=== PATIENT | male | born 1950 | race Caucasian/White ===

== ENCOUNTER 2017-10-09 10:42 | Emergency (ER) | payer SELFPAY ==
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
[2017-10-09 11:12] LABS: ABS Basophils 0.1 10^3/ul (0-0.2); ABS Eosinophils 0.4 10^3/ul (0-0.6); ABS Lymphocytes 1.7 10^3/ul (1.0-4.8); ABS Monocytes 0.8 10^3/ul (0-0.8); ABS Neutrophils 5.8 10^3/ul (1.5-7.7); ABS Nucleated RBC 0 10^3/ul; Eosinophil % 4.1 % (0-6); Hematocrit 42 % (42-52); Lymphocyte % 19.4 % (25-47); Mean Corpuscular HGB Conc 33 g/dl (31-36); Mean Corpuscular Hemoglobin 31 pg (27-31); Mean Corpuscular Volume 93 fL (80-94); Mean Platelet Volume 7.3 um3 (7.4-10.4); Nucleated Red Blood Cells % 0.1; Platelet Count 217 10^3/ul (150-450); Red Blood Count 4.55 10^6/ul (4.00-5.40); Red Cell Distribution Width 16 % (10.5-15); White Blood Count 8.8 10^3/ul (3.5-10.8)
[2017-10-09 11:22] LABS: INR 0.93 (0.77-1.02)
[2017-10-09 11:32] LABS: EGFR Non-African American 71.8 (>60)
--- NOTE | 2017-10-09 11:39 | RAD ---
INDICATION: Chest pain. COMPARISON: Comparison is made with a prior study from July 19, 2015. TECHNIQUE: An AP portable film of the chest was obtained upright. FINDINGS: The heart appears mildly prominent. The lungs are hyperinflated. There is diffuse prominence of the interstitial markings with more focal infiltrates at both lung bases. There may be a trace left pleural effusion. IMPRESSION: FINDINGS SUGGESTIVE OF CONGESTIVE HEART FAILURE, LESS LIKELY PNEUMONIA.
[2017-10-09] MEDS ORDERED: Metoprolol Succinate XL TAB* 50 MG PO ONE (12:38)
[2017-10-09] MEDS ORDERED: Furosemide IV* 10 MG/ML VIAL (40 MG) IV ONE (12:39)
[2017-10-09] MEDS ORDERED: Albuterol/Ipratropium NEB.SOL* Albuterol 2.5 MG/Ipratropium 0.5 MG 3 ML INH ONE (12:39)
[2017-10-09] MEDS ORDERED: predniSONE TAB* 20 MG PO ONE (12:39)
[2017-10-09 13:34] VITALS: BP 0/0
== END 2017-10-09 13:35 | disposition home or self-care (01) ==
LOC: ED 10:42
DX: I48.92 Unspecified atrial flutter (principal); R60.9 Edema, unspecified; J44.1 Chronic obstructive pulmonary disease with (acute) exacerbation; F17.210 Nicotine dependence, cigarettes, uncomplicated
CPT/HCPCS: 36415; 71045; 80053; 83880; 84443; 84484; 85025; 85610; 85730; 93005; 96374; 99282; A9270-GY; J1940; J7512

== ENCOUNTER 2017-12-13 15:06 | Observation (INO) | payer MEDICARE ==
[2017-12-13] MEDS ORDERED: Dexamethasone IV* 4 MG/ML 5 ML VIAL (20 MG) IVPB ONE (15:40)
[2017-12-13] MEDS ORDERED: Albuterol/Ipratropium NEB.SOL* Albuterol 2.5 MG/Ipratropium 0.5 MG 3 ML INH ONE (15:40)
[2017-12-13 16:17] LABS: ABS Basophils 0 10^3/ul (0-0.2); ABS Eosinophils 0.3 10^3/ul (0-0.6); ABS Lymphocytes 1.9 10^3/ul (1.0-4.8); ABS Monocytes 0.7 10^3/ul (0-0.8); ABS Neutrophils 3.3 10^3/ul (1.5-7.7); ABS Nucleated RBC 0 10^3/ul; Eosinophil % 4.1 % (0-6); Hematocrit 46 % (42-52); Hemoglobin 15.4 g/dl (14.0-18.0); Lymphocyte % 30.8 % (25-47); Mean Corpuscular HGB Conc 34 g/dl (31-36); Mean Corpuscular Hemoglobin 32 pg (27-31); Mean Corpuscular Volume 95 fL (80-94); Mean Platelet Volume 8.4 um3 (7.4-10.4); Nucleated Red Blood Cells % 0.1; Platelet Count 212 10^3/ul (150-450); Red Blood Count 4.81 10^6/ul (4.00-5.40); Red Cell Distribution Width 16 % (10.5-15); White Blood Count 6.2 10^3/ul (3.5-10.8)
--- NOTE | 2017-12-13 16:22 | RAD ---
Indication: Bilateral lower extremity edema. Appears chronic. Comparison: October 09, 2017 Technique: Upright AP 1550 hours Report: Elevated lung volumes and mild prominence of the interstitial markings. Grossly clear pleural spaces. Mild cardiomegaly. Mild prominence of the central pulmonary vasculature without gross change. Mildly tortuous descending thoracic aorta. IMPRESSION: #. Pulmonary vascular congestion and interstitial edema similar to the prior exam.
[2017-12-13 16:31] LABS: EGFR Non-African American 79.8 (>60)
[2017-12-13 16:34] LABS: INR 0.87 (0.77-1.02)
[2017-12-13] MEDS ORDERED: Iohexol 350* (CONTRAST) 500 ML MDV IV ONE (17:30)
--- NOTE | 2017-12-13 18:50 | RAD ---
EXAM: CT Angiography Chest With Intravenous Contrast EXAM DATE/TIME: 12/13/2017 5:43 PM CLINICAL HISTORY: 67 years old, male; Pain; Chest pain; Type not specified; Additional info: SOB, palpitation eval for dvt TECHNIQUE: Axial computed tomographic angiography images of the chest with intravenous contrast using CT angiography protocol. All CT scans at this facility use at least one of these dose optimization techniques: automated exposure control; mA and/or kV adjustment per patient size (includes targeted exams where dose is matched to clinical indication); or iterative reconstruction. Coronal and sagittal reformatted images were created and reviewed. MIP reconstructed images were created and reviewed. CONTRAST: 88 ml of OMNIPAQUE 350 administered intravenously. COMPARISON: OT CXR PA CHEST 1 VW 10/09/2017 11:11 AM FINDINGS: Pulmonary arteries: No visible acute pulmonary embolism but limited evaluation of segmental and subsegmental branches of the pulmonary arteries because of respiratory motion artifact. Aorta: Normal. No aortic aneurysm. No aortic dissection. Lungs: There is mild centrilobular emphysema. There is additional bibasilar and bilateral dependent atelectatic change or scarring. Pleural space: There is a small left pleural effusion and associated dependent atelectasis and/or patchy pneumonitis. Heart: Normal. No cardiomegaly. No pericardial effusion. Bones/joints: There is diffuse osteopenia and there are degenerative changes of the spine. There are chronic left-sided rib fractures. Soft tissues: Unremarkable. Lymph nodes: Unremarkable. No enlarged lymph nodes. Liver: There is heterogeneous low attenuation in the liver which could be related to heterogeneous fatty change, but cannot exclude underlying mass lesions. May be more accurately assessed with dedicated CT or MRI hepatic mass protocol on a non-emergent basis. IMPRESSION: 1. There is mild centrilobular emphysema. 2. There is a small left pleural effusion and associated dependent atelectasis and/or patchy pneumonitis. 3. No visible acute pulmonary embolism but limited evaluation of segmental and subsegmental branches of the pulmonary arteries because of respiratory motion artifact. 4. There is heterogeneous low attenuation in the liver which could be related to heterogeneous fatty change, but cannot exclude underlying mass lesions. May be more accurately assessed with dedicated CT or MRI hepatic mass protocol on a non-emergent basis. To contact [facility] with a general question: [facility] - [phone] For direct physician to physician contact: Physician Hotline - [phone] [facility] (ad Facility ID #[id number])
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
--- NOTE | 2017-12-13 19:41 | RAD ---
EXAM: US Bilateral Duplex Lower Extremity Veins EXAM DATE/TIME: 12/13/2017 7:04 PM CLINICAL HISTORY: 67 years old, male; Signs and symptoms; Swelling (edema) of limb; Lower extremity, bilateral; Additional info: Swelling chronic for several months TECHNIQUE: Real-time duplex ultrasound of the Bilateral Lower Extremities with 2-D curiel scale, color Doppler flow and spectral waveform analysis. Complete exam focused on the bilateral lower extremity veins. COMPARISON: No relevant prior studies available. FINDINGS: Right deep veins: Unremarkable. The common femoral, femoral and popliteal veins are patent without thrombus. Normal compressibility, augmentation response and Doppler waveforms. The peroneal veins were not visualized, likely due to lower extremity edema. Remainder of calf veins were patent. Right superficial veins: Saphenofemoral junction is patent without thrombus. Left deep veins: Unremarkable. The common femoral, femoral and popliteal veins are patent without thrombus. Normal compressibility, augmentation response and Doppler waveforms. The peroneal veins were not visualized, likely due to lower extremity edema. Remainder of calf veins were patent. Left superficial veins: Saphenofemoral junction is patent without thrombus. Soft tissues: Subcutaneous edema was noted in the calves bilaterally. IMPRESSION: 1. No evidence of right or left lower extremity DVT. 2. Subcutaneous edema and bilateral calves. To contact [facility] with a general question: [facility] - [phone] For direct physician to physician contact: Physician Hotline - [phone] [facility] ([facility] Facility ID #[id number])
[2017-12-13] MEDS ORDERED: Metoprolol Tartrate IV* 1 MG/ML 5 ML VIAL IV ONE (20:26)
[2017-12-13] MEDS ORDERED: Acetaminophen TAB* 325 MG PO PRN (20:26)
[2017-12-13] MEDS ORDERED: Magnesium Sulfate 1 GM IV* 1 GM/100 ML BAG IV ONE (20:29)
[2017-12-13] MEDS ORDERED: Furosemide IV* 10 MG/ML 2 ML VIAL (20 MG) IV SLOW PU ONE (20:43)
[2017-12-13] MEDS ORDERED: predniSONE TAB* 20 MG PO SCH (21:00)
[2017-12-13] MEDS ORDERED: LORazepam TAB(*) 1 MG PO SCH (21:00)
[2017-12-13] MEDS ORDERED: Rivaroxaban TAB(*) 20 MG TAB PO SCH (21:00)
[2017-12-13] MEDS ORDERED: Metoprolol Tartrate TAB* 25 MG PO SCH (21:00)
[2017-12-13] MEDS ORDERED: NS 0.9% 500 ML* 500 ML IV ONE (22:20)
--- NOTE | 2017-12-13 22:31 | PN ---
Hospitalist Progress Note Date of Service: 12/13/17 Called for latic of 3.8 note previous lactic 2.5. Patient marie cultured. No other signs of sepsis. Cxr clear infact showing pum edema, and patient wheezing , no fever, is tachy however r/t aflutter with rvr, will trend lactics, no abd pain, no chest pain, and sob improved after lasix, no abx at this point elevated lactic unclear but will follow
[2017-12-13] MEDS ORDERED: Albuterol/Ipratropium NEB.SOL* Albuterol 2.5 MG/Ipratropium 0.5 MG 3 ML INH SCH (23:00)
[2017-12-13] MEDS: KCL 10 MEQ/50 ML IVPREMIX* 10 MEQ/50 ML BAG IV SCH (23:10)
[2017-12-13] MEDS: Mometasone/Formoter 200/5 MDI INH SCH (23:59)
[2017-12-14] MEDS ORDERED: Albuterol/Ipratropium NEB.SOL* Albuterol 2.5 MG/Ipratropium 0.5 MG 3 ML INH PRN (00:01)
--- NOTE | 2017-12-14 00:07 | HP ---
CC: Dr. Kennedy; Dr. Dodson; Dr. Andres * HISTORY AND PHYSICAL: DATE OF ADMISSION: 12/13/17 PRIMARY CARE PROVIDER: Dr. Kennedy. CONSULTING CARDIOLOGISTS: Dr. Dodson and Dr. Andres. MY ATTENDING PHYSICIAN WHILE IN THE HOSPITAL: Dr. Brenda Portillo * (report dictated by Jelena Nova NP). CHIEF COMPLAINT: 1. Elevated heart rate. 2. Shortness of breath. HISTORY OF PRESENTING ILLNESS: Mr. Fernandez is a 67-year-old male patient who has a known history of AFib, Aflutter, bipolar disorder, and also is a chronic tobacco abuser, who has really been lost to followup. Two years ago, he was here and admitted, was found to be in Aflutter with a rapid ventricular response , he underwent workup. He was discharged, but unfortunately was lost to followup. He says that he was able to obtain insurance, was following with primary today, getting a routine physical. On evaluation, it was noted that he was tachycardic and he was complaining of shortness of breath, so he was sent to the hospital. The patient says that he has been having rapid heart rates for at least the last 6 months, he has not been taking any medication for this. He says that he knows about the irregular heartbeat. He does state that he does drink alcohol, 1 to 2 cans of 24-ounce cans of beer, almost on a daily basis. He does smoke daily as well, about a pack a day. He says that in the last several days he has been having a cough that has been nonproductive. He said that he was coughing pretty heavily about 4 or 5 days ago and had an episode where he had fainted. He denied having any chest pain, but he does admit to having palpitations. He can feel his heart rate racing. He came into his primary service today and there was concern because of this and he was sent to the hospital. Denied any chest pain. Denied having any fevers or chills. Denied any nausea, vomiting, or diarrhea. PAST MEDICAL HISTORY: Significant for: 1. Aflutter. 2. Bipolar. 3. He is legally blind in his right eye. PAST SURGICAL HISTORY: Denied. MEDICATIONS: Home meds, he says, which were just prescribed recently and he has not yet started taking according to him, include: 1. Lasix 20 mg daily. 2. Ventolin 2 puffs inhaled every 6 hours as needed. 3. Potassium chloride 10 mEq p.o. daily. 4. Lopressor 25 mg p.o. b.i.d. ALLERGIES TO MEDICATION: Include no known drug allergies. FAMILY HISTORY: Mother had a history of cancer. Father's history is unknown. SOCIAL HISTORY: He does drink, again, about 1 to 2 cans of 24-ounce beers, almost daily. He has a history of smoking as well. He denied recreational drug abuse. He does not have a surrogate decision maker at this point. REVIEW OF SYSTEMS: There is no documented fever. He denies having any significant weight change. There is no double vision. He denies having any ear discharge. There is no rhinorrhea. He denies having a sore throat. There was a cough. He denies having any orthopnea. There is no nocturnal dyspnea. He denies having any abdominal pain. There is no nausea, no vomiting. There is no dysuria. There is no frequency. There is no seizure, no loss of consciousness. No pruritus and no skin ulcerations. Review of 14 systems completed, all others negative. PHYSICAL EXAMINATION GENERAL: At this time, Ms. Fernandez is a 67-year-old male patient who appears to be older than stated age. He appears to be well nourished, well developed. He does not appear to be in any acute distress. VITAL SIGNS: Blood pressure of 150/106, pulse 126, respirations were 20, O2 sat 93%, temperature 98.5. There is a recorded respiratory rate of 40, but when I encountered his breathing rate around 20. HEENT: Head: Atraumatic, normocephalic. Eyes: EOMs are intact. Sclerae anicteric, not pale. NECK: Supple. His throat, oral mucosa appears to be moist. No oropharyngeal erythema. LUNGS: He had wheezing noted throughout. He had equal diaphragmatic expansion. HEART: Sounds S1, S2. Irregularly irregular rate. No murmurs, rubs, or gallops. ABDOMEN: Soft, flat, nontender. Bowel sounds are present. EXTREMITIES: He did have 2+ pitting edema bilaterally. He had 5/5 strength. NEUROLOGICAL: He is awake, alert, and oriented x3. He had no gross focal deficits. SKIN: Intact. DIAGNOSTIC STUDIES/LAB DATA: WBC of 6.2, RBC of 4.81, hemoglobin of 15.4, hematocrit of 46, platelet count of 212. INR 0.87, PTT of 29.5. D-dimer of 518. Sodium 142, potassium 3.6, chloride 106, bicarb 27, BUN 5, creatinine 0.94 , glucose 96, lactic 2.5, calcium 9.2. Mag 1.9. Total bili 0.3, AST 46, ALT 59 , alk phos 91. His troponin was 0.01, repeat was 0.01. Albumin of 3.8. He did have a venous Doppler ultrasound obtained today, which revealed no evidence of right or left lower DVT, subcutaneous edema in bilateral calves. He had a chest/thorax CTA. There is mild centrilobular emphysema. There is a small left pleural effusion, associated dependent atelectasis and/or patchy pneumonitis. No visible acute PE, limited evaluation of segmental and subsegmental branches of the pulmonary arteries because of respiratory motion. Chest x-ray shows pulmonary vascular congestion and interstitial edema, similar to prior exam. He did have an EKG obtained today as well, which shows atrial flutter with a rate of 111, no ST elevation was noted. It was reviewed with the previous EKG, it appears to be similar. Old medical records were reviewed. ASSESSMENT AND PLAN: Mr. Fernandez is a 67-year-old male patient coming into the emergency department today with complaints of irregular heartbeat and shortness of breath. We were asked to evaluate for admission. He will be admitted under observation status for: 1. Atrial fibrillation/atrial flutter. Again, this is a chronic problem for this patient. He has had this for several years. He has been lost to followup. I did touch base with Cardiology who will have the rounding train operations manager see the patient tomorrow. The plan, according to Cardiology, would be to go ahead and give him metoprolol 5 mg IV now and then start him on 25 mg p.o. b.i.d. I will also give him a dose of Lasix given the interstitial edema. I will also check an echo, cycle his troponin one more time, place him on telemetry and try for rate control and start Xarelto. I will try to get his potassium around 4 and his mag around 2. 2. Bipolar. Continue with supportive care. 3. Shortness of breath. I feel the patient presumably could have chronic obstructive pulmonary disease given his history of smoking, he is wheezing on exam. He will be given DuoNeb steroids and inhaled steroids as well, and we will continue to follow. 4. DVT prophylaxis: He will be on Xarelto. 5. Code status: Full code. 6. Fluids, electrolytes, and nutrition: He can have a heart-healthy diet. 7. Ethyl alcohol abuse. I will place him on [facility] protocol. TIME SPENT: Time spent on this admission was 60 minutes, greater than half the time spent [id number] with the patient obtaining my history and physical, other half of the time spent going over the plan of care with the patient and implementing the plan of care. I discussed the plan of care with my attending, Dr. Portillo; he is in agreement. JELENA NOVA [place] [id number]/[facility] #: [id number] VIOLETA
[2017-12-14] MEDS: KCL 10 MEQ/50 ML IVPREMIX* 10 MEQ/50 ML BAG IV SCH (00:54)
--- NOTE | 2017-12-14 03:17 | RAD ---
EXAM: CT Head Without Intravenous Contrast EXAM DATE/TIME: 12/14/2017 1:43 AM CLINICAL HISTORY: 67 years old, male; Signs and symptoms; Syncope and collapse TECHNIQUE: Axial computed tomography images of the head/brain without intravenous contrast. All CT scans at this facility use at least one of these dose optimization techniques: automated exposure control; mA and/or kV adjustment per patient size (includes targeted exams where dose is matched to clinical indication); or iterative reconstruction. COMPARISON: No relevant prior studies available. FINDINGS: Brain: No evidence of acute intracranial hemorrhage. No intracranial mass or mass effect. The curiel matter appears intact. 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 Ventricles: Normal. No ventriculomegaly. Bones/joints: Normal. No acute fracture. Sinuses: Normal as visualized. No acute sinusitis. Mastoid air cells: Normal as visualized. No mastoid effusion. Orbits: Phthisis bulbi of left globe. Soft tissues: Normal. IMPRESSION: No acute findings. To contact [facility] with a general question: [facility] - [phone] For direct physician to physician contact: Physician Hotline - [phone] [facility] ([facility] Facility ID #[id number])
[2017-12-14 06:17] LABS: ABS Basophils 0 10^3/ul (0-0.2); ABS Eosinophils 0 10^3/ul (0-0.6); ABS Monocytes 0.2 10^3/ul (0-0.8); ABS Neutrophils 5.1 10^3/ul (1.5-7.7); ABS Nucleated RBC 0 10^3/ul; Eosinophil % 0 % (0-6); Hematocrit 47 % (42-52); Hemoglobin 15.9 g/dl (14.0-18.0); Lymphocyte % 16.4 % (25-47); Mean Corpuscular HGB Conc 34 g/dl (31-36); Mean Corpuscular Hemoglobin 32 pg (27-31); Mean Corpuscular Volume 96 fL (80-94); Mean Platelet Volume 8.5 um3 (7.4-10.4); Nucleated Red Blood Cells % 0.1; Platelet Count 201 10^3/ul (150-450); Red Blood Count 4.94 10^6/ul (4.00-5.40); Red Cell Distribution Width 15 % (10.5-15); White Blood Count 6.4 10^3/ul (3.5-10.8)
[2017-12-14 06:28] LABS: INR 1.31 (0.77-1.02)
[2017-12-14] MEDS: Mometasone/Formoter 200/5 MDI INH SCH (07:16)
[2017-12-14 07:31] LABS: EGFR Non-African American 80.8 (>60)
[2017-12-14 07:48] VITALS: BP 129/88
[2017-12-14] MEDS ORDERED: Multivitamins/Minerals TAB PO SCH (09:00)
[2017-12-14] MEDS ORDERED: Thiamine TAB* 100 MG TAB PO SCH (09:00)
[2017-12-14] MEDS ORDERED: Furosemide TAB* 20 MG PO SCH (09:00)
[2017-12-14] MEDS ORDERED: Folic Acid TAB* 1 MG PO SCH (09:00)
--- NOTE | 2017-12-14 10:26 | ECHO ---
Patient: ENID MULLIGAN [facility] Rec#: [id number] : 1950 Date: 12/14/2017 Age: 67y Height: 183 cm / 72.0 in Weight: 141 kg / 310.8 lbs Sex: M BSA: 2.6 Room#: [facility] Admit Date#: 12/13/2017 Type: Inpatient Referring: Johnathon Nova NP Reading: Tay Dodson MD Director Energy: Genesis Teresa RN RDCS CC: Jayant Kennedy MD Transthoracic Echocardiogram Indication: Abnormal EKG, Atrial fib/Atrial flutter BP: 131/93 HR: 123 Rhythm: A-Flutter Findings History: Atrial fib/flutter, smoker, bipolar disorder, Lyme disease, obesity Technical Comments: The study is technically limited due to patient body habitus. The study is technically limited due to the patient's smoking history. Completed at 0910. Left Ventricle: The left ventricular chamber size is normal. Moderate concentric left ventricular hypertrophy is observed. There is increased basal septal hypertrophy noted without evidence of an increased gradient across the left ventricular outflow tract. The septal knuckle measures 1.7 cm. The estimated ejection fraction is 50-55%. There is septal flattening of the interventricular septum consistent with right ventricular volume or pressure overload. The assessment of diastolic function is non-diagnostic. Left Atrium: The left atrium is moderately dilated. Right Ventricle: The right ventricle is mildly dilated. The right ventricular global systolic function is low normal. Right Atrium: The right atrium is moderately dilated. Aortic Valve: The aortic valve is trileaflet. The aortic valve leaflets are mildly thickened. There is no evidence of aortic regurgitation. There is no evidence of aortic stenosis. Mitral Valve: The mitral valve leaflets are mildly thickened. There is mild mitral regurgitation. There is no evidence of mitral stenosis. Tricuspid Valve: The tricuspid valve structure is not well visualized. There is trace tricuspid regurgitation. Unable to estimate the right ventricular systolic pressure. There is no tricuspid stenosis. Pulmonic Valve: The pulmonic valve appears normal. There is a trace pulmonic regurgitation. There is no pulmonic stenosis. Pericardium: There is no significant pericardial effusion. A pericardial fat pad is visualized. Aorta: There is moderate dilatation of the ascending aorta. at 4.5 cm. The aortic arch is not well visualized. There is mild dilatation of the aortic root. Pulmonary Artery: The main pulmonary artery is not well visualized. Venous: The inferior vena cava is dilated. There is a greater than 50% respiratory change in the inferior vena cava dimension. Summary: There are no significant changes when compared to the previous study done on 07/08/2015, no overt sig changes. ( Ascending aorta measures 4.5 cm now instead of 4.2 cm then). Conclusions The left ventricular chamber size is normal. Moderate concentric left ventricular hypertrophy is observed. There is increased basal septal hypertrophy noted without evidence of an increased gradient across the left ventricular outflow tract. The septal knuckle measures 1.7 cm. The estimated ejection fraction is 50-55%. There is septal flattening of the interventricular septum consistent with right ventricular volume or pressure overload. The assessment of diastolic function is non-diagnostic. The left atrium is moderately dilated. The right ventricle is mildly dilated. The right atrium is moderately dilated. There is mild mitral regurgitation. There is trace tricuspid regurgitation. Unable to estimate the right ventricular systolic pressure. There is a trace pulmonic regurgitation. There is moderate dilatation of the ascending aorta. at 4.5 cm. There is mild dilatation of the aortic root. There are no significant changes when compared to the previous study done on 07/08/2015, no overt sig changes. ( Ascending aorta measures 4.5 cm now instead of 4.2 cm then). Measurements Name Value Normal Range RVIDd (AP) 2D 4 cm (0.9 - 2.6) RVDdMajor (2D) 3.9 cm (2.2 - 4.4) RAd ISD 4CH 7.3 cm (3.4 - 4.9) RA (A4C)W 4.3 cm (2.9 - 4.6) IVSd (2D) 1.4 cm (0.6 - 1) LVPWd (2D) 1.3 cm (0.6 - 1) LVIDd (2D) 3.9 cm (3.6 - 5.4) LVIDs (2D) 2.8 cm - LV FS (2D) 28 % (25 - 45) Aortic Annulus 2.5 cm (1.4 - 2.6) Ao root diameter (2D) 3.9 cm (2.1 - 3.5) Ascending Ao 4.5 cm (2.1 - 3.4) LA dimension (AP) 2D 4.1 cm (2.3 - 3.8) LAd ISD 4CH 7.1 cm (2.9 - 5.3) LA ISD 4CH W 4.5 cm (2.5 - 4.5) Name Value Normal Range LA ESV BP (A/L) index 25.9 ml/m2 - Name Value Normal Range MV E-wave Vmax 1.2 m/sec - MV deceleration time 154 msec - LV septal e' Vmax 0.13 m/sec - LV lateral e' Vmax 0.21 m/sec - LV E:e' septal ratio 9.2 ratio - LV E:e' lateral ratio 5.7 ratio - Name Value Normal Range AV Vmax 1.2 m/sec - AV VTI 22.2 cm - AV peak gradient 6 mmHg - AV mean gradient 4 mmHg - LVOT Vmax 1.2 m/sec - LVOT VTI 22.2 cm - LVOT peak gradient 6 mmHg - LVOT mean gradient 3 mmHg - Name Value Normal Range IVC diameter 2.6 cm - Name Value Normal Range PV Vmax 0.67 m/sec -
--- NOTE | 2017-12-15 11:35 | DS ---
AGAINST MEDICAL ADVICE SUMMARY: DATE OF ADMISSION: 12/13/17 DATE OF DISCHARGE: 12/14/17 AGAINST MEDICAL ADVICE DIAGNOSES: 1. Atrial flutter/atrial fibrillation and rapid ventricular response. 2. History of bipolar disorder. 3. Shortness of breath. AGAINST MEDICAL ADVICE MEDICATIONS: Suggested to the patient and was prescribed was: 1. An increase of his Lopressor to 50 mg p.o. q.12 from 12.5 mg. 2. Lasix 20 mg p.o. daily. 3. Albuterol 2 puffs inhalation q.6 p.r.n. 4. Dulera 2 puffs inhalation b.i.d. 5. Potassium 10 mEq p.o. daily. 6. Prednisone 10 mg p.o. daily. HISTORY OF PRESENT ILLNESS/HOSPITAL COURSE: Please see Mr. Nova's H and P few hours prior to the patient deciding to leave [facility]. Very briefly, the patient was admitted for Afib, atrial flutter with mild ventricular response and the plan was for him to obtain 2D echo and appropriate cardiology consultation and possibly rule out a PE during his stay. However, I was called by the nursing staff earlier this a.m. mentioning that the patient is very agitated and angry and wants to leave [facility]. I then spoke with the patient in person and tried to convince him; however, he kept on yelling at the examiner in front of the staff and other patients and hence, he was told that he could have an increase in morbidity as well as mortality leading to as well as cardiac damage if his heart rate is uncontrolled, and he was informed that his medications will be further titrated and changed, but this is primarily for symptomatic purposes given the innate cause has not been fully evaluated during this admission since he wanted to leave [facility]. He mentions that he understands the above and will follow up with his primary care physician upon leaving the hospital and hence will defer. The patient was advised to follow up and/or call his PCP immediately after leaving against medical advice. He was advised that if he has a finance manager, to call him or her immediately. He was also informed that uncontrolled Afib can lead to shortness of breath due to CHF or possible stress to his heart that can damage it called demand ischemia. Since he has not been fully evaluated prior to his decision to leave, his stroke risk is also unknown and has not been fully weighed against risks of full anticoagulation. Therefore, he will not be prescribed anticoagulation during this time and he will need to discuss this with his PCP and finance manager especially given his noncompliance at this time. His medications have been adjusted, especially his metoprolol and this has been prescribed to him for symptom control primarily since he cannot complete this workup given he will be leaving soon. By leaving [facility], the patient understands that he was putting himself in danger, which can result in and/or morbidity since his medications have not been specifically optimized prior to him leaving. He was advised that if his symptoms resume or develop new ones or feel unwell for any reason, to call his PCP. If his PCP cannot entertain him due to scheduling issues alone, he was advised to call [facility] if his issue is nonemergent. He was advised to call my office regarding any questions, concerns, or further clarifications regarding his discharge plans and/or prescriptions and he was advised to take his medications as prescribed. This conversation has been witnessed and has been reiterated prior to him leaving by his nurse. Patient refused to be re- examined prior to him leaving and will defer. [id number]/[facility] #: [id number] [facility]IOLE[facility]
== END 2017-12-14 09:30 | disposition left against medical advice (07) ==
LOC: ED 15:06 → MEDTELE 20:17
PROVIDERS: ADMIT Internal Medicine; ATTEND Student in an Organized Health Care Education/Training Program
DX: I48.92 Unspecified atrial flutter (principal); R00.2 Palpitations; R06.02 Shortness of breath; Z86.59 Personal history of other mental and behavioral disorders
CPT/HCPCS: 36415; 70450; 71045; 71275; 80048; 80053; 80076; 83605; 83735; 83880; 84443; 84484; 85025; 85379; 85610; 85730; 87040; 93005; 93306; 93970; 94640; 96365; 96375; 99285; A9270-GY; G0378; J1100; J1940; J3475; J3480; J3490; J7512; Q9967

== ENCOUNTER 2018-05-30 10:40 | Emergency (ER) | payer MEDICARE, MEDICAID ==
[2018-05-30 11:53] VITALS: BP 128/86
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
== END 2018-05-30 11:52 | disposition home or self-care (01) ==
LOC: ED 10:40
DX: Z48.02 Encounter for removal of sutures (principal); F17.210 Nicotine dependence, cigarettes, uncomplicated
CPT/HCPCS: 99281

== ENCOUNTER 2018-11-07 15:59 | Emergency (ER) | payer MEDICARE, MEDICAID ==
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
[2018-11-07] MEDS ORDERED: methylPREDNISolone 125 MG* 2 ML VIAL IV ONE (17:08)
[2018-11-07] MEDS ORDERED: Albuterol/Ipratropium NEB.SOL* Albuterol 2.5 MG/Ipratropium 0.5 MG 3 ML ONE ×2 (17:25→17:49)
[2018-11-07] MEDS: Albuterol/Ipratropium NEB.SOL* Albuterol 2.5 MG/Ipratropium 0.5 MG 3 ML INH SCH ×2 (17:26→17:51)
[2018-11-07 17:56] LABS: ABS Eosinophils 0.1 10^3/ul (0-0.6); ABS Lymphocytes 1.5 10^3/ul (1.0-4.8); ABS Monocytes 0.7 10^3/ul (0-0.8); Eosinophil % 1.4 %; Hematocrit 45 % (42-52); Hemoglobin 15.1 g/dL (14.0-18.0); Lymphocyte % 19.9 %; Mean Corpuscular HGB Conc 34 g/dL (31-36); Mean Corpuscular Hemoglobin 33 pg (27-31); Mean Corpuscular Volume 99 fL (80-94); Mean Platelet Volume 7.5 fL (7.4-10.4); Nucleated Red Blood Cells % 0.1; Platelet Count 169 10^3/uL (150-450); Red Cell Distribution Width 14 % (10-15); White Blood Count 7.3 10^3/uL (3.5-10.8)
[2018-11-07 18:14] LABS: Albumin 4.2 g/dL (3.2-5.2); Albumin/Globulin Ratio 1.8 (1-3); BUN/Creatinine Ratio 13.1 (8-20); C Reactive Protein 4.23 mg/L (<8.01); Calcium 8.5 mg/dL (8.6-10.3); EGFR African American 90.7 (>60); Globulin 2.3 g/dL (2-4); Potassium 3.6 mmol/L (3.5-5.0); Total Bilirubin 0.5 mg/dL (0.2-1.0); Total Protein 6.5 g/dL (6.4-8.9)
[2018-11-07 18:15] LABS: Troponin I 0.01 ng/mL (<0.04)
[2018-11-07 18:17] LABS: CKMB ng/mL 7.6 ng/mL (0.6-6.3)
[2018-11-07] MEDS ORDERED: Dextrose 50% Syringe 50 ML* 25 GM/50 ML SYRINGE IV PUSH ONE (18:51)
[2018-11-07] MEDS ORDERED: Albuterol/Ipratropium NEB.SOL* Albuterol 2.5 MG/Ipratropium 0.5 MG 3 ML INH ONE (18:53)
[2018-11-07] MEDS ORDERED: Dextrose 50% VIAL 50 ml IV PUSH ONE (19:00)
[2018-11-07 20:03] VITALS: BP 131/101
--- NOTE | 2018-11-07 20:06 | PN ---
Hospitalist Progress Note Date of Service: 11/07/18 I was called to admit Mr. Fernandez for respiratory distress. However when I entered the room patient was fully alert and oriented refusing to be admitted or examined he says he left his bicyle at [facility] and that in 30 minutes there' s a bus that comes to [facility] going to [facility] that he wishes to catch. I have explained that he came with fall and low sugar, hypercapnic respiratory failure likely due to alcohol intoxication. He says this has happened to him before and he was fine. Understands the risk of change in mentation/Loss of consciousness that can happen if his recurs and if he gets severely hypoglycemic again he can get a stroke or even . He refused to listen and was adamant about leaving. I told him to not take his PO diabetic pills unless he checks his sugars. He says he's not worried about his breathing as he has all the machines to breath at home including nebulizers. After 30 minutes of discussing and attempting to convince him to stay he still didn't want to stay so he singed his AMA paper and left.
== END 2018-11-07 20:02 | disposition short-term general hospital (02) ==
LOC: ED 15:59
DX: J44.9 Chronic obstructive pulmonary disease, unspecified (principal); E11.649 Type 2 diabetes mellitus with hypoglycemia without coma; I10 Essential (primary) hypertension; F31.9 Bipolar disorder, unspecified; F17.210 Nicotine dependence, cigarettes, uncomplicated; Z79.899 Other long term (current) drug therapy; Z79.84 Long term (current) use of oral hypoglycemic drugs
CPT/HCPCS: 36415; 71046; 80053; 80320; 82550; 82553; 82803; 83605; 83880; 84484; 85025; 85730; 86140; 87040; 93005; 96374; 99284; A9270-GY; G0480; J2930

== ENCOUNTER 2018-11-08 18:59 | Inpatient (IN) | payer MEDICARE, MEDICAID ==
[2018-11-08] MEDS ORDERED: methylPREDNISolone 125 MG* 2 ML VIAL IV ONE (19:16)
[2018-11-08] MEDS ORDERED: Albuterol 0.5% CONC NEB.SOL* 5 MG/ML 20 ml BOT INH ONE (19:16)
--- NOTE | 2018-11-08 19:28 | ED ---
Syncope/Near Syncope - HPI Summary HPI Summary: This pt is a 68 Y/O M presenting to [facility] with a CC of syncope that occurred [employer]. The pt states that he was behind [employer] when the episode occurred. He states that when he passed out he fell backwards and hit his head on the ground. He states that he was recently at [facility] for a similar episode yesterday and reported the same symptoms. He became dizzy and states that his blood sugar has been low for the past couple of days. He reported that he was outside all day. He reports being SOB and having a laceration to the back of his head. He has no alleviating symptoms. He has a PMHx of diabetes and HTN. - History Of Current Complaint Chief Complaint: EDFall Time Seen by Provider: 11/08/18 19:10 Hx Obtained From: Patient Onset/Duration: Sudden Onset, Resolved Timing: Constant Context: Loss Of Consciousness Activity At Onset: At Rest Associated Head Trauma: Yes Aggravating Factor(s): Other - states being out in the sun all day, low blood sugar Alleviating Factor(s): Nothing Associated Signs And Symptoms: Dizzy, Shortness Of Breath, Other - laceration to the back of his head, tachycardia Related History: Similar Episode/Dx as - yesterday,11/07/18 - Allergies/Home Medications Allergies/Adverse Reactions: Allergies Allergy/AdvReac Type Severity Reaction Status Date / Time No Known Allergies Allergy Verified 05/30/18 10:56 PMH/Surg Hx/FS Hx/Imm Hx Previously Healthy: Yes Endocrine/Hematology History: Reports: Hx Diabetes Cardiovascular History: Reports: Hx Hypertension, Hx Syncope, Other Cardiovascular Problems/Disorders - Treatment for Afib 06/2015 Respiratory History: Reports: Hx Chronic Obstructive Pulmonary Disease (COPD), Hx Pneumonia History: Denies: Hx Renal Disease Sensory History: Reports: Hx Contacts or Glasses, Hx Eye Injury - asymmetrical, Hx Vision Problem - Left eye blindness Denies: Hx Hearing Aid Opthamlomology History: Reports: Hx Contacts or Glasses, Hx Eye Injury - asymmetrical, Hx Vision Problem - Left eye blindness Psychiatric History: Reports: Hx Inpatient Treatment, Hx Bipolar Disorder, Hx of Violent Episodes Against Others Denies: Hx Eating Disorder, Hx Suicide Attempt - Surgical History Surgery Procedure, Year, and Place: Left eye surgery around 2001 Infectious Disease History: No Infectious Disease History: Denies: Traveled Outside the [place] in Last 30 Days - Family History Known Family History: Positive: Unknown, Other - cancer - Social History Alcohol Use: Daily Alcohol Amount: Reports he drinks socially Substance Use Type: Reports: None Substance Use Comment - Amount & Last Used: reports occasional use Hx Tobacco Use: Yes Smoking Status (MU): Heavy Every Day Tobacco Smoker Type: Cigarettes Amount Used/How Often: 2 PPD smoker Have You Smoked in the Last Year: Yes Review of Systems Positive: Palpitations - fast Positive: Shortness Of Breath Skin: Other - laceration to the back of his head Positive: Syncope All Other Systems Reviewed And Are Negative: Yes Physical Exam - Summary Physical Exam Summary: Appearance: Elderly man lying in the stretcher with obvious respiratory distress , known to be tachycardic. Wake, alert, nontoxic appearing. Skin: Warm, dry, no obvious rash, 2 cm laceration on the occipital scalp Eyes: sclera anicteric, no conjunctival pallor ENT: mucous membranes moist, pharynx appears normal Neck: Supple, nontender Respiratory: Diffuse expiratory wheezing with compromised ventilation. Obvious respiratory distress. Cardiovascular: Normal S1, S2. No murmurs. Normal distal pulses in tibial and radial bilaterally. Abdomen: Soft, nontender, normal active bowel sounds present Musculoskeletal: Normal, Strength/ROM Intact Neurological: A&Ox3, awake and alert, mentation is normal, speech is fluent and appropriate Psychiatric: affect is normal, does not appear anxious or depressed Triage Information Reviewed: Yes Vital Signs On Initial Exam: Initial Vitals Temp Pulse Resp BP Pulse Ox 99.0 F 114 16 106/66 93 11/08/18 19:02 11/08/18 19:02 11/08/18 19:02 11/08/18 19:02 11/08/18 19:02 Vital Signs Reviewed: Yes Diagnostics - Vital Signs Vital Signs Temp Pulse Resp BP Pulse Ox 11/08/18 19:02 99.0 F 114 16 106/66 93 - Laboratory Result Diagrams: 11/08/18 19:38 11/08/18 19:38 Lab Statement: Any lab studies that have been ordered have been reviewed, and results considered in the medical decision making process. - Radiology CXR Radiology Interpretation Completed By: ED Physician Summary of Radiographic Findings: Poor inhalation, no acute processes. Pending offical review. - CT Brain CT CT Interpretation Completed By: Radiologist Summary of CT Findings: 1. Left nasal bone fracture, new since 12/14/2017. 2. No acute intracranial abnormality demonstrated by CT. ED physician has reviewed this report. - EKG 1924 Cardiac Rate: Tachycardia - 115 BPM EKG Rhythm: Sinus Tachycardia ST Segment: Normal Ectopy: None Summary of EKG Findings: EKG at 1924 found Sinus Tachycardia at a rate of 115 BPM. No STEMI. Interpreted by Dr. Bermudez at 192511/08/18. Course/Dx Course Of Treatment: This pt is a 68 Y/O M [place] [facility] with [place] CC of syncope that occurred [employer]. The pt states that he was behind [employer] when the episode occurred. He states that when he passed out he fell backwards and hit his head on the ground. He had a recent case yu but left AMA. His PE found that he is in obvious respiratory distress with diffuse expiratory wheezing with compromised ventilation. He also has a 2cm laceration to his occipital scalp, but no other signs of head trauma. He is also Tachycardic. EKG at 1924 found Sinus Tachycardia at a rate of 115 BPM. No STEMI. He has abnormal lab values in WBC, RBC, Hgb, Hct, MCV, MCH, MPV, Absolute neuts, Absolute monos, creatinine, Glucose of 57, total protein, Globulin, and a serum alcohol of 157. His CXR found no acute processes. His Brain CT found the following abnormalities: 1. Left nasal bone fracture, new since 12/14/2017. 2. No acute intracranial abnormality demonstrated by CT. Dr. Barry, Hospitalist , was consulted at 2127 for a possible addmitance to [facility] [place]. He was diagnosed with the following: COPD exacerbation, Syncope, and hypoglycemia. - Diagnoses Provider Diagnoses: COPD exacerbation, Hypoglycemia, Syncope - Physician Notifications Discussed Care of Patient With: Reggie Barry Time Discussed With Above Provider: 21:29 Instructed by Provider To: Admit As Inpatient Admit/Transition Orders Completed By ED Provider: Yes Discharge ED - Sign-Out/Discharge Documenting (check all that apply): Patient Departure - admitted Patient Received Moderate/Deep Sedation with Procedure: No - Discharge Plan Condition: Stable Disposition: ADMITTED TO [facility] Referrals: No Primary Care Phys,NOPCP [Primary Care Provider] - - Attestation Statements Document Initiated by Scribe: Yes Documenting Scribe: Rick Fierro Provider For Whom Scribe is Documenting (Include Credential): Russel Bermudez MD Scribe Attestation: I, Rick Fierro, scribed for Russel Bermudez MD on 11/08/18 at 2127. Status of Scribe Document: Ready
[2018-11-08] MEDS: NS 0.9% 1000 ML** 2,000 ML IV ONE (19:42)
[2018-11-08 19:45] LABS: ABS Lymphocytes 1.9 10^3/ul (1.0-4.8); ABS Monocytes 1.3 10^3/ul (0-0.8); ABS Neutrophils 8.4 10^3/ul (1.5-7.7); Eosinophil % 0.1 %; Hematocrit 40 % (42-52); Hemoglobin 13.5 g/dL (14.0-18.0); Lymphocyte % 16.1 %; Mean Corpuscular HGB Conc 34 g/dL (31-36); Mean Corpuscular Hemoglobin 33 pg (27-31); Mean Corpuscular Volume 98 fL (80-94); Mean Platelet Volume 7.1 fL (7.4-10.4); Nucleated Red Blood Cells % 0.1; Platelet Count 177 10^3/uL (150-450); Red Blood Count 4.07 10^6 /uL (4.18-5.48); Red Cell Distribution Width 14 % (10-15); White Blood Count 11.6 10^3/uL (3.5-10.8)
[2018-11-08 20:00] LABS: INR 1.03 (0.82-1.09)
[2018-11-08 20:07] LABS: Albumin/Globulin Ratio 2.1 (1-3); BUN/Creatinine Ratio 14.7 (8-20); Calcium 8.9 mg/dL (8.6-10.3); EGFR African American 59.3 (>60); Globulin 1.9 g/dL (2-4); Magnesium 2.4 mg/dL (1.9-2.7); Potassium 3.7 mmol/L (3.5-5.0); Total Bilirubin 0.5 mg/dL (0.2-1.0); Total Protein 5.9 g/dL (6.4-8.9)
[2018-11-08 20:09] LABS: Troponin I 0.03 ng/mL (<0.04)
[2018-11-08] MEDS ORDERED: Dextrose 50% Syringe 50 ML* 25 GM/50 ML SYRINGE IV PUSH ONE (21:41)
[2018-11-08] MEDS ORDERED: Dextrose 50% VIAL 50 ml ONE (21:42)
[2018-11-08] MEDS ORDERED: Dextrose 50% VIAL 50 ml IV ONE (21:44)
[2018-11-08] MEDS: D5NS 0.9% 1000 ML BAG* 1,000 ML IV SCH (21:48)
[2018-11-09 01:03] LABS: Urine Appearance Cloudy; Urine Bilirubin Negative (Negative); Urine Blood Negative (Negative); Urine Color Yellow; Urine Glucose Negative (Negative); Urine Ketones Negative (Negative); Urine Nitrite Negative (Negative); Urine Protein Negative (Negative); Urine Specific Gravity 1.008 (1.010-1.030); Urine Urobilinogen Negative (Negative)
[2018-11-09 01:04] LABS: Urine Bacteria Absent (Absent); Urine Red Blood Cell Absent (Absent); Urine White Blood Cell Trace(0-5/hpf) (Absent)
[2018-11-09 01:12] LABS: Urine Benzodiazepine Screen None Detected (None Detect); Urine Opiates Screen None Detected (None Detect)
[2018-11-09] MEDS ORDERED: Albuterol/Ipratropium NEB.SOL* Albuterol 2.5 MG/Ipratropium 0.5 MG 3 ML INH PRN (03:43)
[2018-11-09] MEDS ORDERED: Thiamine INJ* 100 MG/ML 2 ML VIAL IM ONE (03:43)
[2018-11-09] MEDS ORDERED: LORazepam TAB(*) 1 MG PO SCH (04:00)
[2018-11-09] MEDS ORDERED: methylPREDNISolone SOD 40 MG* 1 ML VIAL IV SCH (04:00)
[2018-11-09] MEDS ORDERED: Azithromycin 500 mg/250 ml NS 500 MG/250 ML BAG IVPB SCH (04:00)
[2018-11-09] MEDS: D5NS 0.9% 1000 ML BAG* 1,000 ML IV SCH (04:03)
[2018-11-09 04:17] LABS: ABS Monocytes 0.3 10^3/ul (0-0.8); ABS Neutrophils 6.7 10^3/ul (1.5-7.7); Hematocrit 41 % (42-52); Hemoglobin 13.9 g/dL (14.0-18.0); Lymphocyte % 12.1 %; Mean Corpuscular HGB Conc 34 g/dL (31-36); Mean Corpuscular Hemoglobin 34 pg (27-31); Mean Corpuscular Volume 99 fL (80-94); Mean Platelet Volume 7.7 fL (7.4-10.4); Platelet Count 166 10^3/uL (150-450); Red Blood Count 4.13 10^6 /uL (4.18-5.48); Red Cell Distribution Width 14 % (10-15)
[2018-11-09 04:26] LABS: BUN/Creatinine Ratio 13.6 (8-20); Calcium 8.6 mg/dL (8.6-10.3); EGFR African American 80.3 (>60); EGFR Non-African American 66.4 (>60); Potassium 4.7 mmol/L (3.5-5.0)
[2018-11-09 05:47] LABS: Hepatitis C Antibody Negative (Negative)
[2018-11-09] MEDS ORDERED: Heparin VIAL(*) 5000 UNITS/ML VIAL (FIVE THOUSAND) SUBCUT SCH (06:00)
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
[2018-11-09] MEDS ORDERED: Multivitamins/Minerals TAB PO SCH (09:00)
[2018-11-09] MEDS ORDERED: Metoprolol Tartrate TAB* 25 MG PO SCH (09:00)
[2018-11-09] MEDS ORDERED: Thiamine TAB* 100 MG TAB PO SCH (09:00)
[2018-11-09] MEDS ORDERED: Folic Acid TAB* 1 MG PO SCH (09:00)
[2018-11-09 09:36] VITALS: BP 126/96
--- NOTE | 2018-11-09 09:47 | DS ---
AGAINST MEDICAL ADVICE DISCHARGE SUMMARY: DATE OF ADMISSION: 11/09/18 DATE OF DISCHARGE: 11/09/18 PRIMARY DIAGNOSES: 1. Hypercapnic respiratory failure. 2. Mild pulmonary edema. 3. Chronic obstructive pulmonary disease exacerbation. 4. Syncopal episode. 5. Hypoglycemia. 6. Atrial fibrillation. HOSPITAL COURSE: Please note this is an against medical advice discharge summary for the patient. T he patient was advised to stay in the hospital. The patient is actually in the ICU, and this is the second time he has passed out in the last 48 hours. First time came in the night before and signed o ut against medical advice from the ER, then came in again last night, was admitted to the ICU, but wa nts to sign out against medical advice again. Discussed possibility of and another syncopal ep isode and feeling poorly. However, the patient understands this and still wants to go, is yelling at staff and wants to go against medical advice. A 68-year-old male with past medical history of AFib, bipolar disorder, COPD, chronic smoker, does no t want to quit smoking, came in to the hospital on 11/07/18, was brought in as he was noted to be unc onscious, was noted to be hypoglycemic and in hypercapnic respiratory failure and was suggested to be admitted on 11/07/18; however, once he was more awake, he immediately signed out against medical adv ice. He was brought in again today on 11/09/18. The patient felt more dizzy and he passed out behind [employer], fell backwards and hit his head on the ground, and onlookers called for ambulance. Please refer to the history and physical for full details. The patient was noted to have a pH of 7.2, pCO2 of 61, oxygen saturation of 97%, bicarb of 20. The patient was on Bi[facility]AP [facility]. [facility] to have a low blood glucose in the 50s. Initially on arrival, his blood glucos e was 27, was given glucose and placed on a glucose drip as well. However, within a few hours, the shailesh em now reports that he wants to sign out against medical advice, does not want to stay in the hosp ital. Risks of discussed with the patient; however, the patient just wants to go. In light of this, the patient will be discharged against medical advice, and as a courtesy, we will send a presc ription for Medrol-Dosepak, azithromycin/Z-BLAKE to his pharmacy [facility] to treat his COPD exacerbati on. His syncopal episode could be related to hypercapnic respiratory failure and hypoglycemia. The patient also has significant alcohol use and was noted to have an elevated alcohol level in the past. The patient also is on glyburide and does not eat and only drinks alcohol. This has been discussed with the patient as well. With respect to his chest x-ray, the patient was noted to have mild vascu lar congestion. In light of this, we will also have him take Lasix 20 mg p.o. daily for 3 days. The patient is advised to follow up with his PCP which he does not have. The patient reports that if he passes out again, he will be brought back to the hospital. It was discussed that he may and thi s is his second episode within 48 hours when he has passed out and was found unconscious. The patien t acknowledges all this, but still wants to go against medical advice and has the mental capacity to make these decisions. In light of this, he is leaving AMA. TIME SPENT: Total time spent on discharge equals 35 minutes. [id number] #: [id number]
--- NOTE | 2018-11-28 21:48 | DS ---
DISCHARGE SUMMARY: ADDENDUM: DATE OF DISCHARGE: 11/09/18 CONDITION ON DISCHARGE: Stable. [id number]/[facility] #: [id number] MTDD
== END 2018-11-09 08:45 | disposition left against medical advice (07) | DRG 189 ==
LOC: ED 18:59 → ICU 11-09 02:50
PROVIDERS: ADMIT Internal Medicine; ATTEND Internal Medicine
PROC: 5A09357 Assistance with Respiratory Ventilation, Less than 24 Consecutive Hours, Continuous Positive Airway Pressure (ICD-10-PCS; principal; 2018-11-09)
DX: J96.02 Acute respiratory failure with hypercapnia (principal); J81.1 Chronic pulmonary edema; J44.1 Chronic obstructive pulmonary disease with (acute) exacerbation; N17.9 Acute kidney failure, unspecified; E11.649 Type 2 diabetes mellitus with hypoglycemia without coma; R55 Syncope and collapse; I48.91 Unspecified atrial fibrillation; F31.9 Bipolar disorder, unspecified; Z53.21 Procedure and treatment not carried out due to patient leaving prior to being seen by health care provider; H54.8 Legal blindness, as defined in USA; I10 Essential (primary) hypertension; F17.210 Nicotine dependence, cigarettes, uncomplicated; F10.129 Alcohol abuse with intoxication, unspecified; Y90.6 Blood alcohol level of 120-199 mg/100 ml; R60.0 Localized edema; Z91.19 Patient's noncompliance with other medical treatment and regimen; Z80.9 Family history of malignant neoplasm, unspecified; Z87.01 Personal history of pneumonia (recurrent)
CPT/HCPCS: 36415; 36600; 70450; 71046; 80048; 80053; 80307; 80320; 81003; 82550; 82553; 82803; 82947; 83036; 83605; 83735; 83880; 84484; 85025; 85610; 85730; 86140; 86803; 87040; 87086; 87641; 93005; 94640; 96374; 99282; 99284; 99285; A9270-GY; G0480; J0456; J1644; J2920; J2930; J3411; J7611

== ENCOUNTER 2018-11-09 19:27 | Emergency (ER) | payer MEDICARE, MEDICAID ==
[2018-11-09 19:46] VITALS: BP 92/73
[2018-11-09] MEDS ORDERED: Albuterol 0.5% CONC NEB.SOL* 5 MG/ML 20 ml BOT INH ONE (19:57)
--- NOTE | 2018-11-09 20:03 | ED ---
Shortness of Breath - HPI Summary HPI Summary: The patient is a 68 y/o M arriving by ambulance to [facility] with a chief complaint of fall secondary to SOB tonight. He denies any LOC or syncopal episode, but he had to lie on the ground until he had been able to regain his ability to breath. EMS notes audible wheezing with unreadable BGL, but patient was awake, alert, and oriented upon their arrival. BGL is 78 on arrival (per triage note). In the ED, the patient states he does not want to be here and would like to leave. Its noted that he has signed out AMA for SOB and hypoglycemia twice in the last two days. He only had one meal and two beers today. PMHx: DM, HTN, syncope, COPD, PNA, bipolar disorder, violent episodes against others. Heavy every day cigarette smoker, daily EtOH, occasional substance use (unspecified). Medications reviewed. Allergies noted. - History of Current Complaint Chief Complaint: EDFall Time Seen by Provider: 11/09/18 19:55 Hx Obtained From: Patient Onset/Duration: Sudden Onset, Still Present - SOB in ED Current Severity: Mild Dyspnea At: Exertion Aggravating Factors: Nothing Alleviating Factors: Nothing Related History: Obesity, Similar Episode - two recent hosptial visits for SOB and hypoglycemia (left AMA both times) - Allergy/Home Medications Allergies/Adverse Reactions: Allergies Allergy/AdvReac Type Severity Reaction Status Date / Time No Known Allergies Allergy Verified 11/09/18 19:37 PMH/Surg Hx/FS Hx/Imm Hx Endocrine/Hematology History: Reports: Hx Diabetes Cardiovascular History: Reports: Hx Hypertension, Hx Syncope, Other Cardiovascular Problems/Disorders - Treatment for Afib 06/2015 Respiratory History: Reports: Hx Chronic Obstructive Pulmonary Disease (COPD), Hx Pneumonia History: Denies: Hx Renal Disease Sensory History: Reports: Hx Eye Injury - asymmetrical, Hx Vision Problem - Left eye blindness Denies: Hx Contacts or Glasses, Hx Hearing Aid Opthamlomology History: Reports: Hx Eye Injury - asymmetrical, Hx Vision Problem - Left eye blindness Denies: Hx Contacts or Glasses Psychiatric History: Reports: Hx Inpatient Treatment, Hx Bipolar Disorder, Hx of Violent Episodes Against Others Denies: Hx Eating Disorder, Hx Suicide Attempt - Surgical History Surgical History: Yes Surgery Procedure, Year, and Place: Left eye surgery around 2001 Infectious Disease History: No Infectious Disease History: Denies: Traveled Outside the [place] in Last 30 Days - Family History Known Family History: Positive: Other - cancer - Social History Alcohol Use: Daily Alcohol Amount: Reports he drinks "when he feels like it" Hx Substance Use: Yes Substance Use Type: Reports: None Substance Use Comment - Amount & Last Used: reports occasional use Hx Tobacco Use: Yes Smoking Status (MU): Heavy Every Day Tobacco Smoker Type: Cigarettes Amount Used/How Often: 2 PPD smoker Have You Smoked in the Last Year: Yes Review of Systems Positive: Shortness Of Breath Neurological: Other - Negative: LOC. Negative: Syncope All Other Systems Reviewed And Are Negative: Yes Physical Exam - Summary Physical Exam Summary: Appearance: Well-appearing, Well-nourished, lying in bed comfortably Skin: Warm, dry, no obvious rash Eyes: sclera anicteric, no conjunctival pallor ENT: mucous membranes moist, pharynx appears normal Neck: Supple, nontender Respiratory: No signs of obvious respiratory distress, Able to speak and yell in full sentences, Diffuse wheezing, Only minimally appearing aeration Cardiovascular: Normal S1, S2. No murmurs. Normal distal pulses in tibial and radial bilaterally. Abdomen: Soft, nontender, normal active bowel sounds present Musculoskeletal: Normal, Strength/ROM Intact Neurological: A&Ox3, awake and alert, mentation is normal, speech is fluent and appropriate Psychiatric: affect is normal, does not appear anxious or depressed Triage Information Reviewed: Yes Vital Signs On Initial Exam: Initial Vitals Temp Pulse Resp BP Pulse Ox 99.2 F 118 24 92/73 92 11/09/18 19:38 11/09/18 19:38 11/09/18 19:38 11/09/18 19:38 11/09/18 19:38 Vital Signs Reviewed: Yes Diagnostics - Vital Signs Vital Signs Temp Pulse Resp BP Pulse Ox 11/09/18 19:38 99.2 F 118 24 92/73 92 - Laboratory Lab Statement: Any lab studies that have been ordered have been reviewed, and results considered in the medical decision making process. Course/Dx - Course Course Of Treatment: Pt is a 68 y/o M brought in by ambulance for fall secondary to SOB with hx of COPD and two visits to the hospital in the last two days with similar presentation but left AMA. Upon physical exam, pt appears to be in no acute respiratory distress as he is able to speak and yell in full sentences, although he has diffuse wheezing with only minimally appearing aeration. Pt confronted on his repeated refusals of recommended medical care, including signout AMA this morning from the ICU where he was being treated for respiratory failure consequent to COPD. At present he is wheezing but appears improved compared to when I saw him yesterday, able to speak (actually yell) in full sentances. He states he did not want to be brought here and he wants to leave. I explained that if he did this there was a good chance of deterioration and , but he persisted. He understands the risks of this and is felt to be competent. A good confucianism bystander became irate at me during this and had to be escorted out by security. - Diagnoses Provider Diagnoses: COPD exacerbation Discharge ED - Sign-Out/Discharge Documenting (check all that apply): Patient Departure - Patient is leaving AMA. Patient Received Moderate/Deep Sedation with Procedure: No - Discharge Plan Condition: Stable Disposition: AGAINST MEDICAL ADVICE Referrals: No Primary Care Phys,NOPCP [Primary Care Provider] - - Billing Disposition and Condition Condition: STABLE Disposition: Against Medical Advice - Attestation Statements Document Initiated by Mac: Yes Documenting Scribe: Yuli Tsang Provider For Whom Mac is Documenting (Include Credential): Dr. Russel Bermudez MD Scribe Attestation: IYuli scribed for Dr. Russel Bermudez MD on 11/10/18 at 1910. Scribe Documentation Reviewed: Yes Provider Attestation: The documentation as recorded by the Yuli batres accurately reflects the service I personally performed and the decisions made by me, Dr. Russel Bermudez MD Status of Scribe Document: Viewed
== END 2018-11-09 20:04 | disposition left against medical advice (07) ==
LOC: ED 19:27
DX: J44.1 Chronic obstructive pulmonary disease with (acute) exacerbation (principal); E11.9 Type 2 diabetes mellitus without complications; I10 Essential (primary) hypertension; F31.9 Bipolar disorder, unspecified; F17.210 Nicotine dependence, cigarettes, uncomplicated; Z79.84 Long term (current) use of oral hypoglycemic drugs; Z79.899 Other long term (current) drug therapy
CPT/HCPCS: 99282

== ENCOUNTER 2019-06-07 17:54 | Emergency (ER) | payer MEDICARE, MEDICAID ==
[2019-06-07] MEDS ORDERED: Tetan/Diph/Pertus SYR(Tdap)* 0.5 ML SYR(BOOSTRIX) use SYR contains LATEX IM ONE (17:59)
--- NOTE | 2019-06-07 18:04 | ED ---
Substance Abuse/Use - HPI Summary HPI Summary: 69 y/o male presented to [facility] after falling while getting off of a bus. Per EMS , pt had consumed EtOH when they were called to the scene and got a laceration on his hand from the fall. No LOC or head pain. - History Of Current Complaint Stated Complaint: 2208 PER EMS Hx Obtained From: Patient, EMS Overdose Characteristics: Oral - EtOH Aggravating Factor(s): Nothing Alleviating Factor(s): Nothing Associated Signs And Symptoms: Other: - laceration to left hand per EMS Related Hx: Drug/Alcohol Last Used @ - today - Allergies/Home Medications Allergies/Adverse Reactions: Allergies Allergy/AdvReac Type Severity Reaction Status Date / Time No Known Allergies Allergy Verified 11/09/18 19:37 Home Medications: Home Medications Furosemide TAB* [Lasix TAB*] 20 mg PO DAILY #7 tab 10/09/17 [Rx Confirmed ] Potassium Chlor TAB* [Klor Con ER TAB 10 MEQ*] 10 meq PO DAILY 12/13/17 [ History Confirmed 11/08/18] Albuterol HFA INHALER* [Ventolin HFA Inhaler*] 2 puff INH Q4HR 11/07/18 [ History Confirmed 11/08/18] Ipratropium/Albuterol Sulfate [Iprat-Albut 0.5-3(2.5) mg/3 ml] 3 ml INH QID [History Confirmed 11/08/18] Metoprolol Tartrate TAB* [Lopressor TAB*] 25 mg PO BID 11/07/18 [History Confirmed 11/08/18] glyBURIDE TAB* [Diabeta TAB*] 2.5 mg PO BID 11/07/18 [History Confirmed 11/08/18 ] Azithromyxin VIET (NF) [Z-Viet (Zithromax) 250 mg tabs #6] 2 tab PO .TODAY, THEN 1 DAILY #6 tab 11/09/18 [Rx] Furosemide TAB* [Lasix TAB*] 20 mg PO DAILY #3 tab 11/09/18 [Rx] methylPREDNISolone [Medrol Dosepak 4 MG*] 0 mg PO .SEE VIET INSTRUCTION #1 tab [Rx] PMH/Surg Hx/FS Hx/Imm Hx Endocrine/Hematology History: Reports: Hx Diabetes Cardiovascular History: Reports: Hx Hypertension, Hx Syncope, Other Cardiovascular Problems/Disorders - Treatment for Afib 06/2015 Respiratory History: Reports: Hx Chronic Obstructive Pulmonary Disease (COPD), Hx Pneumonia History: Denies: Hx Renal Disease Sensory History: Reports: Hx Eye Injury - asymmetrical, Hx Vision Problem - Left eye blindness Denies: Hx Contacts or Glasses, Hx Hearing Aid Opthamlomology History: Reports: Hx Eye Injury - asymmetrical, Hx Vision Problem - Left eye blindness Denies: Hx Contacts or Glasses Psychiatric History: Reports: Hx Inpatient Treatment, Hx Bipolar Disorder, Hx of Violent Episodes Against Others Denies: Hx Eating Disorder, Hx Suicide Attempt - Surgical History Surgery Procedure, Year, and Place: Left eye surgery around 2001 - Family History Known Family History: Positive: Other - cancer - Social History Alcohol Use: Daily Alcohol Amount: Reports he drinks "when he feels like it" Hx Substance Use: Yes Substance Use Type: Reports: None Substance Use Comment - Amount & Last Used: reports occasional use Hx Tobacco Use: Yes Smoking Status (MU): Heavy Every Day Tobacco Smoker Type: Cigarettes Amount Used/How Often: 2 PPD smoker Have You Smoked in the Last Year: Yes Review of Systems Negative: Fever - vitals show temp at 98.3F Positive: Other - laceration to left hand per EMS All Other Systems Reviewed And Are Negative: Yes Physical Exam - Summary Physical Exam Summary: Constitutional: Intoxicated, Alert. (-) Distressed Skin: Warm, Dry; abrasion between 4th and 5th MTP on left hand HENT: Normocephalic; Atraumatic Eyes: Conjunctiva normal Neck: Musculoskeletal ROM normal neck. (-) JVD, (-) Stridor, (-) Nuchal rigidity Cardio: Rhythm regular, rate normal, Heart sounds normal; Intact distal pulses; Radial pulses are 2+ and symmetric. (-) Murmur Pulmonary/Chest wall: Effort normal. (-) Respiratory distress, (-) Wheezes, (-) Rales Abd: Soft, (-) tenderness, (-) Distension, (-) Guarding, (-) Rebound Musculoskeletal: (-) Edema Lymph: (-) Cervical adenopathy Neuro: Alert, Oriented x3 Psych: Mood and affect Normal Triage Information Reviewed: Yes Vital Signs Reviewed: Yes Procedures - Sedation Patient Received Moderate/Deep Sedation with Procedure: No Course/Dx - Course Course Of Treatment: Pt presenting with alcohol intoxication. Medical screening exam does not reveal any emergent conditions. The patient was examined for signs of occult trauma, none of which were found aside from hand abrasion. Will await sobriety - Diagnoses Provider Diagnoses: Alcohol intoxication - Critical Care Time Critical Care Statement: Critical care time is provided exclusive of any time spent performing procedures. Discharge ED - Sign-Out/Discharge Documenting (check all that apply): Sign-Out Patient Signing out patient TO: Russel Bermudez - Pt signed out to Dr. Bermudez at 2100 shift change pending sobriety and dispo. Receiving patient FROM: Claude Manning - Discharge Plan Patient Education Materials: Alcohol Intoxication (ED) Referrals: [facility] [Outside] Additional Instructions: You were seen in the emergency department for alcohol intoxication. Please don' t drink and drive. It was a pleasure taking care of you today. - Attestation Statements Document Initiated by Scribe: Yes Documenting Scribe: Abilio Zhang Provider For Whom Scribe is Documenting (Include Credential): Claude Manning MD Scribe Attestation: I, Abilio Zhang, scribed for Claude Manning MD on 06/07/19 at 2025. Status of Scribe Document: Ready
--- NOTE | 2019-06-07 21:05 | ED ---
Progress - Progress Note Progress Note: This pt is a sign out to Dr. Bermudez from Dr. Manning at 209906/07/2019 pending sobriety and disposition. Re-Evaluation - Re-Evaluation First Eval Re-Evaluation Time: 22:29 Change: Unchanged Comment: The pt became disorderly and was not making coherent sense. He was given 50mgs Benadryl, 2mgs Haldol, and 1mg Ativan as a sedation technique. Course/Dx - Course Course Of Treatment: This pt is a sign out to Dr. Bermudez from Dr. Manning at 209906/07/2019 pending sobriety and disposition. The pt became disorderly, threatening staff, wants to leave, not making coherent sense. He was felt to be incompetent to make decisions to himself, appears quite intoxicated. For now he will require some sedation. He was given 50mgs benadryl, 1mg Ativan, and 2mg Haldol as a sedation technique. He will be discharged home with a Dx of alcohol intoxication. - Diagnoses Provider Diagnoses: Alcohol intoxication, Bipolar disorder, current episode hypomanic - Critical Care Time Critical Care Statement: Critical care time is provided exclusive of any time spent performing procedures. Discharge ED - Sign-Out/Discharge Documenting (check all that apply): Receiving Sign-Out Receiving patient FROM: Claude Manning - Discharge Plan Condition: Good Disposition: HOME Patient Education Materials: Alcohol Intoxication (ED) Referrals: [facility] [Outside] Additional Instructions: You were seen in the emergency department for alcohol intoxication. Please don' t drink and drive. It was a pleasure taking care of you today. - Billing Disposition and Condition Condition: GOOD Disposition: Home - Attestation Statements Document Initiated by Hannahibe: Yes Documenting Scribe: Rick Fierro Provider For Whom Mac is Documenting (Include Credential): Russel Bermudez MD Scribe Attestation: IRick, hannahibed for Russel Bermudez MD on 06/08/19 at 2106. Scribe Documentation Reviewed: Yes Provider Attestation: The documentation as recorded by the Rick batres accurately reflects the service I personally performed and the decisions made by me, Russel Bermudez MD Status of Scribe Document: Viewed
[2019-06-07] MEDS ORDERED: LORazepam INJ* 2 MG/ML 1 ML VIAL IM ONE (22:28)
[2019-06-07] MEDS ORDERED: Haloperidol INJ IV/IM* 5 MG/ML AMP IM ONE (22:28)
[2019-06-07] MEDS ORDERED: diPHENhydraMINE IV* 50 MG/ML 1 ml VIAL (BENADRYL) IM ONE (22:28)
[2019-06-07] MEDS ORDERED: diPHENhydraMINE IV* 50 MG/ML 1 ml VIAL (BENADRYL) ONE (22:30)
[2019-06-07] MEDS ORDERED: LORazepam INJ* 2 MG/ML 1 ML VIAL ONE ×2 (22:30)
[2019-06-07] MEDS ORDERED: Haloperidol INJ IV/IM* 5 MG/ML AMP ONE (22:30)
[2019-06-07 23:09] LABS: ABS Basophils 0.1 10^3/ul (0-0.2); ABS Eosinophils 0.4 10^3/ul (0-0.6); ABS Lymphocytes 1.8 10^3/ul (1.0-4.8); ABS Monocytes 0.6 10^3/ul (0-0.8); ABS Neutrophils 3.8 10^3/ul (1.5-7.7); Eosinophil % 5.6 %; Hematocrit 48 % (42-52); Hemoglobin 16.4 g/dL (14.0-18.0); Lymphocyte % 26.7 %; Mean Corpuscular HGB Conc 34 g/dL (31-36); Mean Corpuscular Hemoglobin 33 pg (27-31); Mean Corpuscular Volume 97 fL (80-94); Mean Platelet Volume 7.5 fL (7.4-10.4); Platelet Count 201 10^3/uL (150-450); Red Blood Count 4.96 10^6 /uL (4.18-5.48); Red Cell Distribution Width 14 % (10-15); White Blood Count 6.7 10^3/uL (3.5-10.8)
[2019-06-07 23:24] LABS: Albumin 4.3 g/dL (3.2-5.2); Albumin/Globulin Ratio 1.5 (1-3); BUN/Creatinine Ratio 12.3 (8-20); Calcium 9.1 mg/dL (8.6-10.3); EGFR African American 83.6 (>60); EGFR Non-African American 69.1 (>60); Globulin 2.9 g/dL (2-4); Potassium 4.4 mmol/L (3.5-5.0); Total Bilirubin 0.4 mg/dL (0.2-1.0); Total Protein 7.2 g/dL (6.4-8.9)
[2019-06-08 05:24] VITALS: BP 0/0
[2019-06-08] MEDS: Morphine 10 MG/ML VIAL (1 ml) IV ONE ×2 (05:29→05:30)
== END 2019-06-08 05:24 | disposition home or self-care (01) ==
LOC: ED 17:54
DX: F10.129 Alcohol abuse with intoxication, unspecified (principal); F31.9 Bipolar disorder, unspecified; F30.8 Other manic episodes; E11.9 Type 2 diabetes mellitus without complications; I10 Essential (primary) hypertension; R55 Syncope and collapse; J44.9 Chronic obstructive pulmonary disease, unspecified; Z79.899 Other long term (current) drug therapy; F17.210 Nicotine dependence, cigarettes, uncomplicated
CPT/HCPCS: 36415; 80053; 80320; 85025; 90471; 90715; 99285; G0480; J1200; J1630; J2060